=== PATIENT | female | born 1965 ===

== ENCOUNTER 2018-09-30 07:41 | Day surgery (SDC) | payer BC ==
--- NOTE | 2018-09-15 13:35 | HP ---
PREOPERATIVE HISTORY AND PHYSICAL: DATE OF SURGERY/ADMISSION: 09/30/18 - OR EAST DATE OF OFFICE VISIT/ENCOUNTER: 09/07/18. ATTENDING SURGEON: Pearl Braxton MD.* (DICTATED BY ADONIS SIDHU) PROCEDURE: Excision mass, left wrist. CHIEF COMPLAINT: Mass, left wrist. HISTORY OF PRESENT ILLNESS: This is a 53-year-old female who complains of a lump on the volar aspect of her left wrist. It has been present for about 10 years. She does not recall any injury. It is not significantly painful, but gets uncomfortable at the end of the day when she has worked a lot. She is referred by [facility] to Dr. Braxton. She denies any associated numbness or tingling. She would like to have this cyst removed surgically. PAST MEDICAL HISTORY: Unremarkable. PAST SURGICAL HISTORY: . CURRENT MEDICATIONS: Diclofenac p.r.n. ALLERGIES: No known drug allergies. FAMILY MEDICAL HISTORY: Hypertension, ovarian cancer, colon cancer, diabetes, brain cancer, stroke. 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 She denies tobacco use and recreational drug use. She drinks alcohol on occasion. REVIEW OF SYSTEMS: Negative for general, cephalic, cardiovascular, respiratory , GI, , other musculoskeletal, integumentary, endocrine, neurologic, and hematologic symptoms. Infectious Disease is negative for MRSA, hepatitis C, HIV. PHYSICAL EXAMINATION GENERAL: Well-developed, well-nourished 53-year-old male, in no acute distress. VITAL SIGNS: Height 5 feet 2 inches, weight 146 pounds. Pulse rate 80, blood pressure 150/90. HEENT: Normocephalic, atraumatic. Pupils are equal, round, and reactive to light and accommodation. Extraocular movements are intact. Throat is clear. NECK: Supple. No palpable lymph nodes. PULMONARY: Lungs are clear to auscultation bilaterally. No wheezes, rales, or rhonchi. CARDIOVASCULAR: Regular rate and rhythm. S1, S2. No murmurs, rubs, or gallops. No edema. ABDOMEN: Positive bowel sounds. Soft, nontender. MUSCULOSKELETAL: On exam of the left wrist, there is an approximately 7 mm diameter cystic mass on the flexor carpi radialis tendon sheath or the palmaris longus tendon. It is minimally tender to palpation. She has full range of motion of her wrist. NEUROLOGICAL: Alert and oriented x3. Cranial nerves II through XII are intact. Sensation is intact to light touch. SKIN: Intact. Neurovascular function is intact. IMPRESSION: Cystic mass on left wrist. PLAN: The patient is scheduled to undergo an excision mass left wrist with Dr. Braxton on 09/30/18. She will return to the office 10 days postop for followup and suture removal. A prescription for Ultracet was e-scribed to the patient's pharmacy for postoperative pain management. ADONIS SIDHU [id number]/[facility] #: [id number] FLOR
[~2018-09-30 07:41] MED LIST: Buffered Lidocaine 0.9% SYRIN* 5 ML/SYR SYRINGE INTRADERM ONE; Dexamethasone IV* 4 MG/ML 1 ML (4 MG) IV SLOW PU ONE; Dexamethasone IV* 4 MG/ML 1 ML (4 MG) ONE; Famotidine IV* 10 MG/ML 2 ML (20 mg) IV ONE; Famotidine IV* 10 MG/ML 2 ML (20 mg) ONE; Lactated Ringers 1000 ML Bag* 1,000 ML IV SCH
[2018-09-30] MEDS ORDERED: Midazolam* 1 MG/ML 2 ML VIAL (2 MG) ONE ×2 (09:18→09:26)
[2018-09-30] MEDS ORDERED: Lidocaine 2% PF * 5 ML VIAL ONE (09:18)
[2018-09-30] MEDS ORDERED: Propofol* 10 MG/ML 20 ML BTL ONE (09:18)
[2018-09-30] MEDS ORDERED: fentaNYL* 50 MCG/ML 2 ML VIAL (100 MCG VIAL) ONE (09:18)
[2018-09-30] MEDS ORDERED: Ketorolac INJ* 30 MG/ML 1 ML VIAL ONE (09:18)
[2018-09-30] MEDS ORDERED: HYDROcodone/ACETAMIN 5-325 MG* 1 TAB PO PRN (09:24)
[2018-09-30] MEDS ORDERED: fentaNYL* 50 MCG/ML 2 ML VIAL (100 MCG VIAL) IV PRN (09:24)
[2018-09-30] MEDS ORDERED: DiMENhydriNATE IV* 50 MG/ML VIAL IV PUSH PRN (09:24)
[2018-09-30] MEDS ORDERED: Naloxone* 0.4 MG/ML 1 ML VIAL IV PRN (09:24)
[2018-09-30] MEDS ORDERED: oxyCODONE/Acetamin 5/325 MG* TAB PO PRN (09:24)
[2018-09-30] MEDS ORDERED: Lidocaine 1% INJ* 10 MG/ML 30 ML SDV ONE (09:33)
[2018-09-30 10:11] VITALS: BP 118/76
--- NOTE | 2018-09-30 21:30 | OP ---
DATE OF OPERATION: 09/30/18 [facility] DATE OF : 61 SURGEON: Pearl Braxton MD [employer] COORDINATOR: ADONIS Alexis ANESTHESIA: Local MAC. PRE-OP DIAGNOSIS: Left wrist mass. POST-OP DIAGNOSIS: Left wrist mass. OPERATIVE PROCEDURE: Removal of left wrist mass. ESTIMATED BLOOD LOSS: Zero. TOURNIQUET TIME: Approximately 10 minutes. INDICATIONS: Maira is a 53-year-old female who has a painful mass on the volar aspect of her left wrist. It has been present for 10 years and she now wishes to have it removed. DESCRIPTION OF PROCEDURE: The patient was brought to the operating room, was given a sedation anesthetic, and a local infiltration of 10 cc of 1% plain lidocaine overlying the left wrist mass. Skin of the left upper extremity was prepped and draped in the usual sterile fashion. The hand and forearm were exsanguinated and the tourniquet elevated to 250 mmHg. A longitudinal incision was made centered over the mass. We dissected bluntly through the subcutaneous tissue down to the mass. 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 It was associated with one very small vessel and this was cauterized with the Bovie. The mass was then removed in its entirety and sent for pathology. The wound was irrigated and the skin edges reapproximated with 4-0 nylon suture. The wound was dressed with Xeroform, 4x4, Webril, and an Cooper wrap. The patient tolerated the procedure well and was brought to the recovery room in good condition. [id number]/[facility] #: [id number] MTDD
== END 2018-09-30 10:29 | disposition home or self-care (01) ==
LOC: OREAST 07:41
PROVIDERS: ATTEND Orthopaedic Surgery
DX: R22.32 Localized swelling, mass and lump, left upper limb (principal)
CPT/HCPCS: 88304; J1100; J1885; J2250; J2704; J3010